=== PATIENT | male | born 1930 | race Caucasian/White ===

== ENCOUNTER 2016-11-30 17:58 | Emergency (ER) | payer OTHER ==
[~2016-11-30 17:58] MED LIST: ALDACTONE25 MG PO; ASPIRIN325 M1 PO; CIPRO500 MG PO; COR3 PO; DIFLUCAN100 MG PO; DIOVAN80 MG PO; DUL5 PO; ECO81 PO; FLO4 PO; FLONS; LAC PO; LANTUS100 U/ML SC; LEVAQUIN500 MG PO; LIPITOR10 MG PO; MAC100 PO; METFORMIN1000 M1 PO; MP PO; TRE400 PO; TYLENOL325 MG PO
[2016-11-30 18:09] VITALS: BP 150/44
== END 2016-11-30 18:20 | disposition expired ==
LOC: ED 17:58
DX: I46.9 Cardiac arrest, cause unspecified (principal); I10 Essential (primary) hypertension; E78.00 Pure hypercholesterolemia, unspecified
CPT/HCPCS: 83880; J3490; Q0092